=== PATIENT | male | born 1950 | race Caucasian/White ===

== ENCOUNTER 2021-02-11 14:54 | Emergency (ER) | payer OTHER, MEDICARE ==
[~2021-02-11] VITALS: Ht 180.3 cm; Wt 81.0 kg
[2021-02-11] MEDS ORDERED: adenosine 3mg/ml 2ml vial IV ONE ×2 (15:00)
[2021-02-11 15:20] LABS: BASOPHILS % (AUTO) 0.5 % (0-1); EOSINOPHILS # (AUTO) 0.1 X10'3 (0-0.9); EOSINOPHILS % (AUTO) 1.7 % (0-6); HEMATOCRIT 47.6 % (42.0-52.0); HEMOGLOBIN 15.6 g/dl (14.0-17.9); LYMPHOCYTES # (AUTO) 1.1 X10'3 (1.1-4.8); LYMPHOCYTES % (AUTO) 12.5 % (21-51); MEAN CORPUSCULAR HEMOGLOBIN 30.3 PG (27.0-31.0); MEAN CORPUSCULAR HGB CONC 32.8 g/dL (33.0-36.5); MEAN CORPUSCULAR VOLUME 92.2 FL (78-98); MONOCYTES # (AUTO) 0.7 X10'3 (0-0.9); MONOCYTES % (AUTO) 8.6 % (2-12); NEUTROPHILS # (AUTO) 6.5 X10'3 (1.8-7.7); NEUTROPHILS % (AUTO) 76.7 % (42-75); PLATELET COUNT 216 X10'3 (140-440); RED BLOOD COUNT 5.17 X10'6 (4.70-6.10); RED CELL DISTRIBUTION WIDTH 14.4 % (11.5-14.5); WHITE BLOOD COUNT 8.5 X10'3 (4.5-11.0)
[2021-02-11 15:38] LABS: ALANINE AMINOTRANSFERASE 31 U/L (12-78); ALBUMIN 2.3 G/DL (3.4-5.0); ALBUMIN/GLOBULIN RATIO 0.5 (1.1-1.5); ALKALINE PHOSPHATASE 88 IU/L (46-116); ANION GAP 6 (8-16); ASPARTATE AMINO TRANSFERASE 24 U/L (10-37); BILIRUBIN,TOTAL 1.1 MG/DL (0.1-1.0); BLOOD UREA NITROGEN 19 MG/DL (7-18); BUN/CREATININE RATIO 14.2 (5.4-32.0); CALCIUM 9.3 MG/DL (8.5-10.1); CHLORIDE 104 MMOL/L (99-107); CREATININE 1.34 MG/DL (0.60-1.10); GLUCOSE 107 MG/DL (70-104); POTASSIUM 4.1 MMOL/L (3.5-5.1); SODIUM 136 MMOL/L (135-145); TOTAL CARBON DIOXIDE 25.8 MMOL/L (24-32); TOTAL PROTEIN 7.3 G/DL (6.4-8.2); eGFR 52 ML/MIN
[2021-02-11] MEDS ORDERED: normal saline 1000ML IV soln IVB ONE ×2 (16:00)
[2021-02-11] MEDS: metoprolol tartrate 50mg tablet PO ONE ×2 (16:39→16:40)
[2021-02-11 18:09] VITALS: BP 109/76
== END 2021-02-11 21:32 | disposition home or self-care (01) ==
LOC: ER 14:55
DX: I48.0 Paroxysmal atrial fibrillation (principal); I25.10 Atherosclerotic heart disease of native coronary artery without angina pectoris; E78.00 Pure hypercholesterolemia, unspecified; Z95.0 Presence of cardiac pacemaker; Z88.8 Allergy status to other drugs, medicaments and biological substances
CPT/HCPCS: 36415; 71045; 80053; 83735; 83880; 84484; 85025; 93005; 96360; 96361; 99285; J7030

== ENCOUNTER 2021-06-14 08:32 | Outpatient (CLI) | payer OTHER | END 2021-06-14 23:59 | disposition home or self-care (01) | LOC: CARD DIAG 08:32 | PROVIDERS: ATTEND Chiropractor | DX: I08.3 Combined rheumatic disorders of mitral, aortic and tricuspid valves (principal); I25.10 Atherosclerotic heart disease of native coronary artery without angina pectoris; I48.91 Unspecified atrial fibrillation | CPT/HCPCS: 93306 ==

== ENCOUNTER 2023-01-18 11:52 | Day surgery (SDC) | payer OTHER ==
[2023-01-18] VITALS (8 sets, daily range): BP systolic 110–138; BP diastolic 64–95; PULSE 68–89; RESP 12–23; TEMP 98; O2SAT 93–100
[~2023-01-18] VITALS: Ht 182.9 cm; Wt 92.8 kg
[2023-01-18] MEDS ORDERED: LORazepam 0.5 MG tablet PO PRN (12:25)
[2023-01-18] MEDS ORDERED: normal saline 1,000 ML IV SCH (12:25)
[2023-01-18] MEDS ORDERED: diphenhydrAMINE 25mg capsule PO PRN (12:25)
[2023-01-18] MEDS ORDERED: HYDR12.55 PO (12:46)
[2023-01-18] MEDS ORDERED: NITR0.4T51 SL (12:47)
[2023-01-18] MEDS ORDERED: VITAMIN B12 (12:48)
[2023-01-18] MEDS ORDERED: ROSU20TA73 (12:49)
[2023-01-18 12:51] LABS: ALBUMIN 3.9 G/DL (3.4-5.0); ANION GAP 10 (8-16); BLOOD UREA NITROGEN 20 MG/DL (7-18); CALCIUM 9.2 MG/DL (8.5-10.1); CHLORIDE 105 MMOL/L (99-107); CREATININE 1.11 MG/DL (0.60-1.10); GLUCOSE 106 MG/DL (70-104); POTASSIUM 4.3 MMOL/L (3.5-5.1); SODIUM 139 MMOL/L (135-145); TOTAL CARBON DIOXIDE 24.3 MMOL/L (24-32); eGFR 65 ML/MIN
[2023-01-18] MEDS ORDERED: ALPR-384 PO (12:51)
[2023-01-18 12:52] LABS: BASOPHILS % (AUTO) 0.5 % (0-1); EOSINOPHILS # (AUTO) 0.1 X10'3 (0-0.9); EOSINOPHILS % (AUTO) 1.6 % (0-6); HEMATOCRIT 45.1 % (42.0-52.0); HEMOGLOBIN 14.9 g/dl (14.0-17.9); LYMPHOCYTES # (AUTO) 1.1 X10'3 (1.1-4.8); LYMPHOCYTES % (AUTO) 20.9 % (21-51); MEAN CORPUSCULAR VOLUME 87.8 FL (78-98); MONOCYTES # (AUTO) 0.6 X10'3 (0-0.9); MONOCYTES % (AUTO) 11.2 % (2-12); NEUTROPHILS # (AUTO) 3.6 X10'3 (1.8-7.7); NEUTROPHILS % (AUTO) 65.8 % (42-75); PLATELET COUNT 172 X10'3 (140-440); RED BLOOD COUNT 5.13 X10'6 (4.70-6.10); RED CELL DISTRIBUTION WIDTH 14.7 % (11.5-14.5); WHITE BLOOD COUNT 5.4 X10'3 (4.5-11.0)
[2023-01-18] MEDS ORDERED: CHOL20002 PO (12:52)
[2023-01-18 12:53] LABS: PROTHROMBIN TIME 10.7 SECONDS (9.0-12.0)
[2023-01-18] MEDS ORDERED: OMEP40CA21 PO (12:53)
[2023-01-18] MEDS ORDERED: OMEG100037 PO (12:53)
[2023-01-18] MEDS ORDERED: ASPI-1265 PO (12:54)
[2023-01-18] MEDS ORDERED: fentaNYL/PF 50MCG/1 ML 2ML syringe ONE (13:08)
[2023-01-18] MEDS ORDERED: heparin 1,000unit/ml 10ml vial 10 ML ONE ×2 (13:08→14:50)
[2023-01-18] MEDS ORDERED: LIDOcaine 1% (10mg/ml) 2ml vial ONE (13:08)
[2023-01-18] MEDS ORDERED: verapamil 2.5 mg/ml inj IV ONE (13:08)
[2023-01-18] MEDS ORDERED: iohexol 350MG/ML 100ml bottle IV ONE (13:08)
[2023-01-18] MEDS ORDERED: midazolam 1 mg/ML 2ml injection ONE (13:08)
[2023-01-18] MEDS ORDERED: nitroGLYCERIN 500mcg/5mL D5W 5 ML IV ONE (13:10)
[2023-01-18] MEDS ORDERED: LIDOcaine 1% 30ml preserv. free vial ONE (14:13)
[2023-01-18] MEDS ORDERED: iohexol 350 MG/ML 50ML vial IV ONE ×3 (14:33→15:03)
[2023-01-18] MEDS ORDERED: clopidogrel 300mg tablet ONE (14:57)
[2023-01-18] MEDS ORDERED: aspirin 325mg tablet ONE (14:57)
== END 2023-01-18 17:35 | disposition home or self-care (01) ==
LOC: SSTAY O 11:52
PROVIDERS: ATTEND Student in an Organized Health Care Education/Training Program
DX: R07.89 Other chest pain (principal); T82.855A Stenosis of coronary artery stent, initial encounter; I25.810 Atherosclerosis of coronary artery bypass graft(s) without angina pectoris; I25.2 Old myocardial infarction; I10 Essential (primary) hypertension; I25.10 Atherosclerotic heart disease of native coronary artery without angina pectoris; I48.91 Unspecified atrial fibrillation; E78.5 Hyperlipidemia, unspecified; Z79.899 Other long term (current) drug therapy; Z79.82 Long term (current) use of aspirin; Z88.5 Allergy status to narcotic agent; Y84.0 Cardiac catheterization as the cause of abnormal reaction of the patient, or of later complication, without mention of misadventure at the time of the procedure; Y92.89 Other specified places as the place of occurrence of the external cause
CPT/HCPCS: 36415; 80048; 85025; 85610; 92920; 93005; 93459; 99152; 99153; C1725; C1751; C1760; C1769; C1894; J1644; J2250; J3010; J3490; J7030; Q0163; Q9967; A6258

== ENCOUNTER 2023-07-29 11:12 | Outpatient (CLI) | payer OTHER ==
[~2023-07-29 11:12] MED LIST: ALPR-384 PO; ASPI-1265 PO; CHOL20002 PO; HYDR12.55 PO; NITR0.4T51 SL; OMEG100037 PO; OMEP40CA21 PO; ROSU20TA73; VITAMIN B12
== END 2023-07-29 23:59 | disposition home or self-care (01) ==
LOC: RAD 11:12
PROVIDERS: ATTEND Chiropractor
DX: I08.8 Other rheumatic multiple valve diseases (principal); I25.10 Atherosclerotic heart disease of native coronary artery without angina pectoris; I21.3 ST elevation (STEMI) myocardial infarction of unspecified site; I48.91 Unspecified atrial fibrillation; I45.2 Bifascicular block
CPT/HCPCS: 93005; 93306

== ENCOUNTER 2024-03-02 17:13 | Inpatient (IN) | payer OTHER, MEDICARE ==
[~2024-03-02] VITALS: Ht 182.9 cm; Wt 97.1 kg
[~2024-03-02 17:13] MED LIST changes: -ROSU20TA73; +ROSU20TA98
[2024-03-02 17:46] LABS: BASOPHILS % (AUTO) 0.6 % (0-1); EOSINOPHILS # (AUTO) 0.2 X10'3 (0-0.9); EOSINOPHILS % (AUTO) 2.6 % (0-6); HEMATOCRIT 44.2 % (42.0-52.0); HEMOGLOBIN 14.9 g/dl (14.0-17.9); LYMPHOCYTES # (AUTO) 1.1 X10'3 (1.1-4.8); LYMPHOCYTES % (AUTO) 15.9 % (21-51); MEAN CORPUSCULAR HGB CONC 33.6 g/dL (33.0-36.5); MEAN CORPUSCULAR VOLUME 86.2 FL (78-98); MEAN PLATELET VOLUME 8.1 FL (7.4-10.4); MONOCYTES # (AUTO) 0.7 X10'3 (0-0.9); NEUTROPHILS # (AUTO) 5.1 X10'3 (1.8-7.7); NEUTROPHILS % (AUTO) 70.9 % (42-75); PLATELET COUNT 206 X10'3 (140-440); RED BLOOD COUNT 5.13 X10'6 (4.70-6.10); RED CELL DISTRIBUTION WIDTH 14.8 % (11.5-14.5); WHITE BLOOD COUNT 7.2 X10'3 (4.5-11.0)
[2024-03-02] MEDS: diltiazem 5mg/ml 5ml inj. IV ONE (17:48)
[2024-03-02] MEDS ORDERED: diltiazem-NS 100mg/100ml 100 ML IV SCH (17:50)
[2024-03-02 17:55] LABS: ALANINE AMINOTRANSFERASE 57 U/L (12-78); ALBUMIN 3.8 G/DL (3.4-5.0); ALBUMIN/GLOBULIN RATIO 1.2 (1.1-1.5); ALKALINE PHOSPHATASE 78 IU/L (46-116); ANION GAP 5 (8-16); ASPARTATE AMINO TRANSFERASE 45 U/L (10-37); BILIRUBIN,TOTAL 0.7 MG/DL (0.1-1.0); BLOOD UREA NITROGEN 25 MG/DL (7-18); BUN/CREATININE RATIO 18.1 (10.0-20.0); CALCIUM 9.2 MG/DL (8.5-10.1); CHLORIDE 105 MMOL/L (99-107); CREATININE 1.38 MG/DL (0.60-1.10); GLUCOSE 112 MG/DL (70-104); POTASSIUM 3.8 MMOL/L (3.5-5.1); PRO BRAIN NATRIURETIC PEPTIDE 1106 PG/ML (0-450); SODIUM 139 MMOL/L (135-145); TOTAL PROTEIN 7.1 G/DL (6.4-8.2); eCRCL 51 ML/MIN; eGFR 50 ML/MIN
[2024-03-02] MEDS: aspirin 81mg tab.chew PO ONE (18:10)
[2024-03-02] MEDS: diltiazem-NS 100mg/100ml 100 ML IV SCH (18:18)
[2024-03-02] MEDS ORDERED: magnesium sulf-water 4G/100mL 100 ML IV PRN (18:35)
[2024-03-02] MEDS ORDERED: acetaminophen 325mg tablet PO PRN (18:35)
[2024-03-02] MEDS ORDERED: potassium Cl 40MEQ/1/2NS 520ml 520 ML IV PRN (18:35)
[2024-03-02] MEDS: PERFLUTREN PROTEIN-A MICROSPHR (Optison) 0.22 MG/ML 3ML VIAL IV ONE (18:35)
[2024-03-02] MEDS ORDERED: mag hydrox/Alum hydrox/simeth 30ml oral suspension PO PRN (18:35)
[2024-03-02] MEDS ORDERED: magnesium Cl slow-release 64mg tablet PO PRN (18:35)
[2024-03-02] MEDS ORDERED: magnesium hydroxide 30ml (MOM) UD suspension PO PRN (18:35)
[2024-03-02] MEDS ORDERED: ondansetron/PF 4mg/2ml inj IV PRN (18:35)
[2024-03-02] MEDS ORDERED: potassium Cl 20 mEq SR tablet PO PRN ×2 (18:35)
[2024-03-02] MEDS ORDERED: magnesium sulf-water 2g/50mL 50 ML IV PRN (18:35)
[2024-03-02] MEDS ORDERED: MELA5TAB50 PO (18:59)
[2024-03-02] MEDS ORDERED: AMLO2.5T2 PO (19:02)
[2024-03-02] MEDS ORDERED: IRBE150T51 PO (19:03)
[2024-03-02] MEDS: docusate sod 100mg capsule PO SCH (19:21)
[2024-03-02] MEDS: K and/or MAG REPLACEMENT MC SCH (19:23)
[2024-03-02] MEDS: normal saline 1000ML IV soln IVB ONE (19:59)
[2024-03-02] MEDS: apixaban 5mg tablet PO SCH (19:59)
[2024-03-02] MEDS ORDERED: enoxaparin 40mg/0.4ml syringe SQ SCH (20:00)
[2024-03-02 22:00] VITALS: BP 113/83; PULSE 94; RESP 20; TEMP 97.3; O2SAT 97
[2024-03-02 23:00] VITALS: BP 136/99; PULSE 71; RESP 16
[2024-03-03] VITALS (19 sets, daily range): BP systolic 90–133; BP diastolic 58–88; PULSE 72–136; RESP 15–22; TEMP 97.2–98.7; O2SAT 95–98
[2024-03-03] MEDS: diltiazem-NS 100mg/100ml 100 ML IV SCH ×2 (02:37→03:39)
[2024-03-03] MEDS ORDERED: ALPRAZolam 0.25mg tablet PO SCH (08:00)
[2024-03-03] MEDS: ALPRAZolam 0.25mg tablet PO SCH (08:00)
[2024-03-03] MEDS: losartan 25mg tablet PO SCH (08:00)
[2024-03-03] MEDS: metoprolol succinate 25mg (24-HOUR) SR. Tablet PO SCH (08:00)
[2024-03-03 08:14] LABS: BASOPHILS % (AUTO) 0.5 % (0-1); EOSINOPHILS # (AUTO) 0.2 X10'3 (0-0.9); EOSINOPHILS % (AUTO) 3.2 % (0-6); HEMATOCRIT 41.1 % (42.0-52.0); HEMOGLOBIN 13.8 g/dl (14.0-17.9); LYMPHOCYTES # (AUTO) 1.1 X10'3 (1.1-4.8); LYMPHOCYTES % (AUTO) 17.1 % (21-51); MEAN CORPUSCULAR HEMOGLOBIN 28.9 PG (27.0-31.0); MEAN CORPUSCULAR HGB CONC 33.5 g/dL (33.0-36.5); MEAN CORPUSCULAR VOLUME 86.2 FL (78-98); MEAN PLATELET VOLUME 8.7 FL (7.4-10.4); MONOCYTES # (AUTO) 0.7 X10'3 (0-0.9); NEUTROPHILS # (AUTO) 4.5 X10'3 (1.8-7.7); NEUTROPHILS % (AUTO) 68.2 % (42-75); PLATELET COUNT 186 X10'3 (140-440); RED BLOOD COUNT 4.76 X10'6 (4.70-6.10); RED CELL DISTRIBUTION WIDTH 14.3 % (11.5-14.5); WHITE BLOOD COUNT 6.6 X10'3 (4.5-11.0)
[2024-03-03] MEDS: cholecalciferol (vitamin D3) 1,000 unit (25mcg) tablet PO SCH (08:20)
[2024-03-03] MEDS: pantoprazole 40mg Tablet.DR PO SCH (08:20)
[2024-03-03] MEDS: OMEGA-3/DHA/EPA/FISH OIL 1 EACH CAPSULE.DR PO SCH (08:21)
[2024-03-03] MEDS: amLODIPine 5mg tablet PO SCH (08:22)
[2024-03-03] MEDS: aspirin 81mg tab.chew PO SCH (08:24)
[2024-03-03] MEDS: HYDROchlorothiazide 12.5mg capsule PO SCH (08:26)
[2024-03-03 08:28] LABS: ALANINE AMINOTRANSFERASE 47 U/L (12-78); ALBUMIN 3.1 G/DL (3.4-5.0); ALKALINE PHOSPHATASE 61 IU/L (46-116); ANION GAP 7 (8-16); ASPARTATE AMINO TRANSFERASE 42 U/L (10-37); BILIRUBIN,TOTAL 0.7 MG/DL (0.1-1.0); BLOOD UREA NITROGEN 23 MG/DL (7-18); BUN/CREATININE RATIO 18.7 (10.0-20.0); CALCIUM 8.5 MG/DL (8.5-10.1); CHLORIDE 105 MMOL/L (99-107); CHOL/HDL RATIO 2.8 (0.00-4.99); CHOLESTEROL 107 MG/DL (0-200); CREATININE 1.23 MG/DL (0.60-1.10); GLUCOSE 96 MG/DL (70-104); HDL CHOLESTEROL 38 MG/DL (35-60); LDL CHOLESTEROL 57 MG/DL (50-100); MAGNESIUM 1.9 MG/DL (1.5-2.4); POTASSIUM 3.7 MMOL/L (3.5-5.1); SODIUM 137 MMOL/L (135-145); THYROID STIMULATING HORMONE 3.87 ulU/ml (0.34-4.50); TOTAL CARBON DIOXIDE 25.2 MMOL/L (24-32); TOTAL PROTEIN 6.3 G/DL (6.4-8.2); TRIGLYCERIDES 107 MG/DL (20-135); eCRCL 57 ML/MIN; eGFR 57 ML/MIN
[2024-03-03] MEDS ORDERED: aminophylline 250mg/10ml inj. IV PRN (18:50)
[2024-03-03] MEDS ORDERED: regadenoson 0.4mg/5ml syringe IV PRN (18:50)
[2024-03-03] MEDS ORDERED: nitroGLYCERIN 0.4mg SUBLingual tab SL PRN (18:50)
[2024-03-03] MEDS ORDERED: metoprolol tartrate 1mg/ml inj IV PRN (18:50)
[2024-03-03] MEDS: carvedilol 6.25mg tablet PO SCH (19:42)
[2024-03-03] MEDS: metoprolol tartrate 1mg/ml inj IV ONE (20:22)
[2024-03-03] MEDS: Melatonin 3mg tablet PO SCH (22:46)
[2024-03-04] VITALS (18 sets, daily range): BP systolic 84–117; BP diastolic 52–84; PULSE 50–120; RESP 14–25; TEMP 96.9–98.2; O2SAT 95–98
[2024-03-04 07:42] LABS: BASOPHILS % (AUTO) 0.5 % (0-1); EOSINOPHILS # (AUTO) 0.2 X10'3 (0-0.9); HEMATOCRIT 43.9 % (42.0-52.0); HEMOGLOBIN 14.7 g/dl (14.0-17.9); MEAN CORPUSCULAR HGB CONC 33.4 g/dL (33.0-36.5); PLATELET COUNT 191 X10'3 (140-440)
[2024-03-04 07:43] LABS: ALANINE AMINOTRANSFERASE 47 U/L (12-78); ALBUMIN 3.4 G/DL (3.4-5.0); ALKALINE PHOSPHATASE 61 IU/L (46-116); ANION GAP 5 (8-16); ASPARTATE AMINO TRANSFERASE 43 U/L (10-37); BILIRUBIN,TOTAL 0.7 MG/DL (0.1-1.0); BLOOD UREA NITROGEN 19 MG/DL (7-18); BUN/CREATININE RATIO 14.7 (10.0-20.0); CALCIUM 8.9 MG/DL (8.5-10.1); CHLORIDE 103 MMOL/L (99-107); CREATININE 1.29 MG/DL (0.60-1.10); GLUCOSE 100 MG/DL (70-104); POTASSIUM 3.9 MMOL/L (3.5-5.1); SODIUM 136 MMOL/L (135-145); TOTAL CARBON DIOXIDE 28.1 MMOL/L (24-32); TOTAL PROTEIN 6.7 G/DL (6.4-8.2); eCRCL 54 ML/MIN; eGFR 54 ML/MIN
[2024-03-04 07:46] LABS: EOSINOPHILS % (AUTO) 3.3 % (0-6); LYMPHOCYTES # (AUTO) 1.1 X10'3 (1.1-4.8); LYMPHOCYTES % (AUTO) 17.1 % (21-51); MEAN CORPUSCULAR HEMOGLOBIN 28.7 PG (27.0-31.0); MEAN CORPUSCULAR VOLUME 85.8 FL (78-98); MEAN PLATELET VOLUME 8.5 FL (7.4-10.4); MONOCYTES # (AUTO) 0.7 X10'3 (0-0.9); MONOCYTES % (AUTO) 10.4 % (2-12); NEUTROPHILS # (AUTO) 4.4 X10'3 (1.8-7.7); NEUTROPHILS % (AUTO) 68.7 % (42-75); RED BLOOD COUNT 5.11 X10'6 (4.70-6.10); RED CELL DISTRIBUTION WIDTH 14.5 % (11.5-14.5); WHITE BLOOD COUNT 6.4 X10'3 (4.5-11.0)
[2024-03-04] MEDS: metoprolol tartrate 1mg/ml inj IV ONE (09:55)
[2024-03-04] MEDS: carvedilol 6.25mg tablet ONE (09:59)
[2024-03-04] MEDS: regadenoson 0.4mg/5ml syringe IV PRN (11:05)
[2024-03-04] MEDS: amiodarone 150mg/dext, iso-os 100 ML IV ONE (13:53)
[2024-03-04] MEDS: carVEDilol 12.5mg tablet PO ONE ×2 (19:45→23:20)
[2024-03-04] MEDS ORDERED: carvedilol 6.25mg tablet PO SCH ×2 (19:45→20:00)
[2024-03-04] MEDS: amiodarone 200mg tablet PO SCH (20:00)
[2024-03-04] MEDS: carvedilol 6.25mg tablet PO ONE (20:08)
[2024-03-04] MEDS: amiodarone 200mg tablet PO ONE ×2 (20:08→23:20)
[2024-03-05 02:00] VITALS: BP 94/71; PULSE 73; RESP 16; TEMP 97.7; O2SAT 97
[2024-03-05 06:00] VITALS: BP 105/76; PULSE 101; RESP 18; TEMP 97.5; O2SAT 97
[2024-03-05 06:50] LABS: BASOPHILS % (AUTO) 0.5 % (0-1); EOSINOPHILS # (AUTO) 0.2 X10'3 (0-0.9); EOSINOPHILS % (AUTO) 3.2 % (0-6); HEMATOCRIT 43.4 % (42.0-52.0); HEMOGLOBIN 14.6 g/dl (14.0-17.9); LYMPHOCYTES # (AUTO) 1.3 X10'3 (1.1-4.8); LYMPHOCYTES % (AUTO) 18.3 % (21-51); MEAN CORPUSCULAR HGB CONC 33.6 g/dL (33.0-36.5); MEAN CORPUSCULAR VOLUME 86.5 FL (78-98); MEAN PLATELET VOLUME 8.5 FL (7.4-10.4); MONOCYTES # (AUTO) 0.8 X10'3 (0-0.9); MONOCYTES % (AUTO) 11.1 % (2-12); NEUTROPHILS # (AUTO) 4.7 X10'3 (1.8-7.7); NEUTROPHILS % (AUTO) 66.9 % (42-75); PLATELET COUNT 177 X10'3 (140-440); RED BLOOD COUNT 5.02 X10'6 (4.70-6.10); RED CELL DISTRIBUTION WIDTH 14.3 % (11.5-14.5); WHITE BLOOD COUNT 7.1 X10'3 (4.5-11.0)
[2024-03-05 07:18] LABS: ALANINE AMINOTRANSFERASE 44 U/L (12-78); ALBUMIN 3.1 G/DL (3.4-5.0); ALKALINE PHOSPHATASE 59 IU/L (46-116); ANION GAP 9 (8-16); ASPARTATE AMINO TRANSFERASE 36 U/L (10-37); BILIRUBIN,TOTAL 0.6 MG/DL (0.1-1.0); BLOOD UREA NITROGEN 19 MG/DL (7-18); BUN/CREATININE RATIO 17.3 (10.0-20.0); CALCIUM 8.9 MG/DL (8.5-10.1); CHLORIDE 104 MMOL/L (99-107); GLUCOSE 113 MG/DL (70-104); MAGNESIUM 2.2 MG/DL (1.5-2.4); SODIUM 136 MMOL/L (135-145); TOTAL CARBON DIOXIDE 22.6 MMOL/L (24-32); TOTAL PROTEIN 6.2 G/DL (6.4-8.2); eCRCL 64 ML/MIN; eGFR 65 ML/MIN
[2024-03-05 08:00] VITALS: RESP 18; O2SAT 97
[2024-03-05] MEDS: carVEDilol 12.5mg tablet PO SCH (09:08)
[2024-03-05] MEDS ORDERED: AMI200T PO (12:58)
[2024-03-05] MEDS ORDERED: APIX5TAB3 PO (12:58)
[2024-03-05] MEDS ORDERED: CARV12.545 PO (12:58)
[2024-03-05 13:00] VITALS: BP 107/67; PULSE 88; RESP 17; TEMP 97.8; O2SAT 98
[2024-03-05] MEDS ORDERED: amiodarone 200mg tablet PO SCH (20:00)
== END 2024-03-05 14:30 | disposition home or self-care (01) | DRG 282 ==
LOC: ER 17:13 → ED HOLD 18:09 → EDBEDREQ 20:46 → PCU 3S 21:34
PROVIDERS: ADMIT Family Medicine; ATTEND Family Medicine
PROC: 4A02XM4 Measurement of Cardiac Total Activity, External Approach (ICD-10-PCS; principal; 2024-03-03)
PROC: 3E033HZ Introduction of Radioactive Substance into Peripheral Vein, Percutaneous Approach (ICD-10-PCS; 2024-03-03)
DX: I48.91 Unspecified atrial fibrillation (principal); I21.A1 Myocardial infarction type 2; E78.00 Pure hypercholesterolemia, unspecified; I10 Essential (primary) hypertension; E78.5 Hyperlipidemia, unspecified; I25.10 Atherosclerotic heart disease of native coronary artery without angina pectoris; Z79.82 Long term (current) use of aspirin; Z79.899 Other long term (current) drug therapy; Z95.1 Presence of aortocoronary bypass graft; Z88.5 Allergy status to narcotic agent; Z95.5 Presence of coronary angioplasty implant and graft
CPT/HCPCS: 36415; 71045; 78452; 80053; 80061; 83735; 83880; 84443; 84484; 85025; 87081; 93005; 93017; 93306; 99291; A9500; G0378; J0282; J2785; J3490; J7030

== ENCOUNTER 2024-03-24 06:53 | Day surgery (SDC) | payer OTHER, MEDICARE ==
[2024-03-24] VITALS (9 sets, daily range): BP systolic 105–120; BP diastolic 73–89; PULSE 80–86; RESP 13–19; O2SAT 94–100
[~2024-03-24] VITALS: Ht 182.9 cm; Wt 95.5 kg
[~2024-03-24 06:53] MED LIST changes: +AMI200T PO; +APIX5TAB3 PO; -ASPI-1265 PO; +MELA5TAB50 PO; +METOPROLOL PO
[2024-03-24] MEDS ORDERED: simethicone 40mg/0.6ml oral drops 30ml ONE (08:05)
[2024-03-24] MEDS ORDERED: LIDOcaine 2% Viscous 15ml cup ONE (08:07)
[2024-03-24] MEDS ORDERED: MIDAZolam 1 MG/ML 5ML VIAL ONE (08:13)
[2024-03-24] MEDS ORDERED: fentaNYL/PF 50MCG/1 ML 2ML syringe ONE (08:13)
== END 2024-03-24 09:15 | disposition home or self-care (01) ==
LOC: GI LAB 06:53
PROVIDERS: ATTEND Surgery
DX: K44.9 Diaphragmatic hernia without obstruction or gangrene (principal); K29.50 Unspecified chronic gastritis without bleeding; K20.90 Esophagitis, unspecified without bleeding; I10 Essential (primary) hypertension; I25.10 Atherosclerotic heart disease of native coronary artery without angina pectoris; E78.5 Hyperlipidemia, unspecified; I48.91 Unspecified atrial fibrillation; Z87.891 Personal history of nicotine dependence; Z79.01 Long term (current) use of anticoagulants; Z79.899 Other long term (current) drug therapy; Z95.1 Presence of aortocoronary bypass graft; Z98.890 Other specified postprocedural states; Z83.3 Family history of diabetes mellitus; Z82.49 Family history of ischemic heart disease and other diseases of the circulatory system; Z80.9 Family history of malignant neoplasm, unspecified
CPT/HCPCS: 43239; 99152; J2250; J3010; J7030; Z7512; A4620

== ENCOUNTER 2024-04-07 10:55 | Day surgery (SDC) | payer OTHER, MEDICARE ==
[2024-04-06 10:11] LABS: BASOPHILS % (AUTO) 0.7 % (0-1); EOSINOPHILS # (AUTO) 0.1 X10'3 (0-0.9); EOSINOPHILS % (AUTO) 1.8 % (0-6); HEMATOCRIT 44.6 % (42.0-52.0); HEMOGLOBIN 14.8 g/dl (14.0-17.9); LYMPHOCYTES # (AUTO) 0.9 X10'3 (1.1-4.8); LYMPHOCYTES % (AUTO) 13.8 % (21-51); MEAN CORPUSCULAR HEMOGLOBIN 28.1 PG (27.0-31.0); MEAN CORPUSCULAR HGB CONC 33.1 g/dL (33.0-36.5); MEAN PLATELET VOLUME 8.3 FL (7.4-10.4); MONOCYTES # (AUTO) 0.6 X10'3 (0-0.9); MONOCYTES % (AUTO) 9.7 % (2-12); NEUTROPHILS # (AUTO) 4.7 X10'3 (1.8-7.7); PLATELET COUNT 242 X10'3 (140-440); RED BLOOD COUNT 5.24 X10'6 (4.70-6.10); RED CELL DISTRIBUTION WIDTH 14.6 % (11.5-14.5); WHITE BLOOD COUNT 6.4 X10'3 (4.5-11.0)
[2024-04-06 10:22] LABS: APTT 30 SECONDS (22-32); INR 1.1 INR; PROTHROMBIN TIME 11.7 SECONDS (9.0-12.0)
[2024-04-06 10:39] LABS: ALBUMIN 3.7 G/DL (3.4-5.0); ANION GAP 10 (8-16); BLOOD UREA NITROGEN 22 MG/DL (7-18); BUN/CREATININE RATIO 15.1 (10.0-20.0); CALCIUM 8.8 MG/DL (8.5-10.1); CHLORIDE 105 MMOL/L (99-107); CHOL/HDL RATIO 2.7 (0.00-4.99); CHOLESTEROL 117 MG/DL (0-200); CREATININE 1.46 MG/DL (0.60-1.10); GLUCOSE 106 MG/DL (70-104); HDL CHOLESTEROL 43 MG/DL (35-60); LDL CHOLESTEROL 63 MG/DL (50-100); POTASSIUM 3.9 MMOL/L (3.5-5.1); SODIUM 143 MMOL/L (135-145); TOTAL CARBON DIOXIDE 28.4 MMOL/L (24-32); TRIGLYCERIDES 69 MG/DL (20-135); eGFR 47 ML/MIN
[~2024-04-07] VITALS: Ht 182.9 cm; Wt 94.0 kg
[2024-04-07] VITALS (10 sets, daily range): BP systolic 93–127; BP diastolic 55–88; PULSE 63–105; RESP 13–20; TEMP 97.5; O2SAT 92–96
[2024-04-07] MEDS ORDERED: AMI200T PO ×2 (11:19→11:20)
[2024-04-07] MEDS ORDERED: APIX5TAB3 PO (11:21)
[2024-04-07] MEDS: fentaNYL/PF 50MCG/1 ML 2ML syringe IV ONE (13:02)
[2024-04-07] MEDS: MIDAZolam 1mg/ml 10ml vial IV ONE (13:02)
[2024-04-07] MEDS: normal saline 1000ml 1,000 ML IV SCH (13:02)
== END 2024-04-07 13:55 | disposition home or self-care (01) ==
LOC: SSTAY O 10:55
PROVIDERS: ATTEND Internal Medicine Interventional Cardiology
DX: I48.91 Unspecified atrial fibrillation (principal); I49.1 Atrial premature depolarization; I25.10 Atherosclerotic heart disease of native coronary artery without angina pectoris; I25.2 Old myocardial infarction; I08.3 Combined rheumatic disorders of mitral, aortic and tricuspid valves; Z79.899 Other long term (current) drug therapy
CPT/HCPCS: 36415; 80048; 80061; 85025; 85610; 85730; 92960; 93005; J2250; J3010; J7030

== ENCOUNTER 2024-06-19 11:56 | Outpatient (CLI) | payer OTHER, MEDICARE ==
[~2024-06-19 11:56] MED LIST changes: -MELA5TAB50 PO; -NITR0.4T51 SL; +barium sulfate 340gm for oral suspension 1 BOTTLE SUSP.RECON PO ONE
== END 2024-06-19 23:59 | disposition home or self-care (01) ==
LOC: RAD 11:56
PROVIDERS: ATTEND Surgery
DX: K21.9 Gastro-esophageal reflux disease without esophagitis (principal)
CPT/HCPCS: 74220

== ENCOUNTER 2024-10-22 07:08 | Day surgery (SDC) | payer OTHER, MEDICARE ==
[2024-10-19 14:21] LABS: BASOPHILS % (AUTO) 0.6 % (0-1); EOSINOPHILS # (AUTO) 0.2 X10'3 (0-0.9); EOSINOPHILS % (AUTO) 2.6 % (0-6); LYMPHOCYTES # (AUTO) 1.1 X10'3 (1.1-4.8); LYMPHOCYTES % (AUTO) 14.3 % (21-51); MEAN CORPUSCULAR HEMOGLOBIN 27.4 PG (27.0-31.0); MEAN CORPUSCULAR HGB CONC 32.5 g/dL (33.0-36.5); MEAN CORPUSCULAR VOLUME 84.4 FL (78-98); MEAN PLATELET VOLUME 8.6 FL (7.4-10.4); MONOCYTES # (AUTO) 0.8 X10'3 (0-0.9); MONOCYTES % (AUTO) 9.6 % (2-12); NEUTROPHILS # (AUTO) 5.7 X10'3 (1.8-7.7); NEUTROPHILS % (AUTO) 72.9 % (42-75); PRE OP HEMATOCRIT 45.4 % (42.0-52.0); PRE OP HEMOGLOBIN 14.8 g/dL (14.0-17.9); PRE OP PLATELET COUNT 210 X10'3 (140-440); PRE OP WHITE BLOOD COUNT 7.8 10'3 (4.8-10.8); RED BLOOD COUNT 5.38 X10'6 (4.70-6.10)
[2024-10-19 14:30] LABS: ALBUMIN 3.8 G/DL (3.4-5.0); ALBUMIN/GLOBULIN RATIO 1.1 (1.1-1.5); ALKALINE PHOSPHATASE 67 IU/L (46-116); BLOOD UREA NITROGEN 25 MG/DL (7-18); BUN/CREATININE RATIO 17.9 (10.0-20.0); CALCIUM 9.2 MG/DL (8.5-10.1); CHLORIDE 103 MMOL/L (99-107); PRE OP ALT 23 U/L (30-65); PRE OP ANION GAP 7 (8-16); PRE OP AST 22 U/L (10-37); PRE OP BILIRUB, TOTAL 0.8 MG/DL (0.0-1.0); PRE OP GLUCOSE 97 MG/DL (70-104); PRE OP POTASSIUM 4.4 MMOL/L (3.4-5.1); PRE OP SODIUM 138 MMOL/L (135-145); TOTAL CARBON DIOXIDE 28.1 MMOL/L (24-32); TOTAL PROTEIN 7.4 G/DL (6.4-8.2); eGFR 49 ML/MIN
[2024-10-21] MEDS: DOCUMENT DATE & TIME OF BETA-BLOCKER PO ONE (19:00)
[~2024-10-22] VITALS: Ht 182.9 cm; Wt 95.3 kg
[2024-10-22] VITALS (15 sets, daily range): BP systolic 107–133; BP diastolic 71–96; PULSE 57–69; RESP 8–18; TEMP 97; O2SAT 95–100
[2024-10-22] MEDS: ceFAZolin 2gm/dext,iso 50mL 50 ML IV ONE (05:30)
[~2024-10-22 07:08] MED LIST changes: -ALPR-384 PO; -CHOL20002 PO; +LOP12.5T PO; -METOPROLOL PO; -OMEG100037 PO; -ROSU20TA98; +ROSU20TA98 PO; -VITAMIN B12; -barium sulfate 340gm for oral suspension 1 BOTTLE SUSP.RECON PO ONE
[2024-10-22] MEDS ORDERED: LIDOcaine 1% 30ml preserv. free vial ONE (07:51)
[2024-10-22] MEDS ORDERED: BUPIVAcaine 2.5mg/ml inj 50ml vial (contains preservative) ONE (07:51)
[2024-10-22] MEDS: ringers solution, lacted 1,000 ML IV SCH (08:07)
[2024-10-22] MEDS: famotidine 20mg tablet PO ONE (08:07)
[2024-10-22] MEDS ORDERED: acetaminophen 1,000mg/100ml IV 0 ML IV ONE (08:07)
[2024-10-22] MEDS ORDERED: dexamethasone sod phosphate 4mg/ml inj. ONE (08:09)
[2024-10-22] MEDS ORDERED: LIDOcaine 2% (20mg/ml) 5ml vial ONE (08:09)
[2024-10-22] MEDS ORDERED: propofol inj 20 ML IV ONE (08:09)
[2024-10-22] MEDS ORDERED: ondansetron/PF 4mg/2ml inj ONE (08:09)
[2024-10-22] MEDS ORDERED: rocuronium 10mg/ml inj IV ONE ×3 (08:09→10:44)
[2024-10-22] MEDS ORDERED: midazolam 1 mg/ML 2ml injection ONE (08:46)
[2024-10-22] MEDS ORDERED: fentaNYL /PF 50mcg/ml 5ml ampule ONE (08:46)
--- NOTE | 2024-10-22 08:55 | HISTORY AND PHYSICAL ---
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, longstanding despite maximum medical therapy He is here today for elective repair He had an esophagram that showed intact esophageal motility with good swallow reflex, re demonstrating sliding hiatal hernia He is scheduled for robotic assisted, laparoscopic mesh repair of this paraesophageal hernia He may need overnight observation for pain control He denies any change in his past medical history since he was seen in the office (please see previous history and physical exam for all pertinent details) Allergies: Coded Allergies: codeine (Verified Allergy, Unknown, 03/02/24) Home Medications Home Medications Active Reported Lopressor tablet (Metoprolol Tartrate) 25 Mg Tablet 2 Tab PO QPM Hold for SBP below 100mm Hg Hold for Heart Rate below 60. Eliquis (Apixaban) 5 Mg Tablet 1 Tab PO BID PT STOPPED ON 10/19 Cordarone (Amiodarone HCl) 200 Mg Tablet 0.5 Tab PO QPM Prilosec (Omeprazole) 40 Mg Capsule 0.5 Cap PO DAILY Rosuvastatin Calcium 20 Mg Tablet 20 Mg PO QPM Hydrochlorothiazide 12.5 Mg Tablet 1 Tab PO DAILY Family History Family History: FH: diabetes mellitus MOTHER FH: heart attack MOTHER FH: heart disease Sister Brother ROS ROS Reviewed and negative with the exception of reflux Exam Vitals: Vital Signs Date Time Temp Pulse Resp B/P (MAP) Pulse Ox O2 Delivery O2 Flow Rate FiO2 10/22/24 08:31 16 96 Room Air 10/22/24 08:28 97.0 60 107/71 (83) Chest: Lungs clear to auscultation bilaterally Cardiovascular: Regular rate and rhythm without murmurs Abdomen: Soft and nondistended Diagnostic Data Last Recorded Lab Results: 10/19/24 1409 10/19/24 1409 Problems: (1) Paraesophageal hernia Assessment & Plan: The risks, benefits, and alternatives to a robotic assisted, laparoscopic paraesophageal hernia repair with mesh were discussed with the patient. Risks include, but are not limited to, bleeding, infection, injury to intra-abdominal structures, hernia recurrence, dysphagia and the need for additional future surgeries. Patient verbalized understanding and wishes to proceed with surgery. We will do so today as scheduled JENNY VILLEDA MD Oct 22, 2024 08:55
[2024-10-22] MEDS ORDERED: acetaminophen 1,000mg/100ml IV 100 ML IV ONE (09:03)
[2024-10-22] MEDS ORDERED: sevoflurane 250ml liquid IH ONE (09:25)
[2024-10-22] MEDS: BUPIVAcaine/PF 2.5 mg/ml (0.25%) 30ml vial IJ ONE (09:27)
[2024-10-22] MEDS ORDERED: ePHEDrine 50MG/ML INJ. ONE (10:18)
[2024-10-22] MEDS ORDERED: albumin (Human) 5% 250ml 250 ML IV ONE (10:28)
[2024-10-22] MEDS ORDERED: sugammadex 200mg/2ml injection IV ONE (10:37)
[2024-10-22] MEDS ORDERED: fentaNYL/PF 50MCG/1 ML 2ML syringe ONE (10:37)
[2024-10-22] MEDS ORDERED: oxyCODONE/APAP 5-325mg tablet PO PRN (12:25)
--- NOTE | 2024-10-22 12:27 | OPERATIVE REPORT ---
Operative Report Providers to CC CC: RAY VILLEDA MD ~ Date of Procedure: Oct 22, 2024 Pre-Operative Diagnosis: Paraesophageal hernia Post-Operative Diagnosis Type 1 paraesophageal (sliding hiatal) hernia Procedure Performed Robotic assisted, laparoscopic paraesophageal hernia repair with mesh Surgeon: Ray Villeda MD FACS Bird Sitter None Anesthesiologist: Jevon Sams Type of Anesthesia: General Findings: Type 1 paraesophageal (sliding hiatal) hernia Wound class I Complications None Prosthetics\Implants used: Phasix absorbable mesh Estimated Blood Loss: 50 cc Specimen Removed: Hernia sac/GE fat pad excised and discarded Description of Procedure: Patient was brought to the operating room and identified by the nursing staff and the attending physician. Patient was placed supine and general anesthesia was induced. Preoperative antibiotics were given. Timmons catheter was placed. The abdomen was prepped and draped in the standard sterile fashion. At [place], Veress needle technique was used through a stab incision to access and insufflate the abdomen. This was accomplished without incident. An optical, 12 mm trocar was used to gain access to the abdomen in the left upper quadrant under laparoscopic visualization. Additional 8.5 mm robotic trochars were placed under laparoscopic visualization in the left lateral upper abdomen, left epigastrium and right upper quadrant. Patient was placed in steep, reverse Trendelenburg position. The da Rbeezy robotic arm was docked to the patient and instruments guided into the abdomen under laparoscopic visualization. The left lobe of the liver was lifted and the hiatus inspected. Fairly large hiatal defect was noted. No obvious hiatal defect was noted. There was fairly amount of fat at the level of the hiatus. An 18 inch, 0, V-Loc suture was used to sling the left lobe of the liver up to the anterior abdominal wall. With the stomach retracted towards the patient's left upper quadrant, dissection was initiated along the pars flaccida and the lesser sac was entered. The lesser omentum was divided up to the right carmelo. There was not a replaced left hepatic artery. Dissection was carried in to the mediastinum. The mediastinal space was entered. Dissection was then carried posteriorly along the right carmelo, taking care to leave peritoneum overlying the muscles. Once the posterior decussation was encountered, attention was then turned to the short gastric vessels. Stomach was retracted toward the patient's right and the short gastric vessels were placed on tension. The short gastric vessels were divided along the upper portion of the greater curvature, up to the phrenoesophageal ligament which was also then divided. The peritoneal reflection of the left carmelo was opened and dissection carried up until the apex of the crura was reached. Dissection was carried up into the mediastinum, mobilizing the esophagus from the retrocardiac space and taking care not to injure the bilateral pleura. The entire hernia sac which was minimal to non-existent in size, was mobilized out of the mediastinum and reduced into the abdomen. Excess sac was dissected at the level of the gastroesophageal fat pad and set aside. The retroesophageal space was developed. The GE junction was retracted anteriorly and the mediastinal dissection was carried out posterior to the esophagus. Dissection continued until at least 3 cm of intra-abdominal esophagus was obtained without any retraction on the stomach. With the stomach retracted anteriorly, adequate space and visualization was obtained to allow for the crural repair. While doing this, an actively bleeding short gastric vein was identified. There was about a 50 cc blood loss before this was controlled. Strips of bioabsorbable, Phasix mesh were used to reinforce the crural repair. A strip of mesh was placed over each crura and used for reapproximation without tension. Attention was then turned to the gastropexy. Fundus was anchored to the upper left portion of the hiatus with full-thickness crural sutures. The suture was then run along the greater curvature creating a gastropexy to the anterior abdominal wall. Care was taken to stay medial to the phrenic nerve and vascular bundle. About a fourth of the gastric fundus was anchored to the anterior abdominal wall. Attention was then turned to the modified Hill procedure/augmentation stitch. The angle of His was then recreated with a running, 2/0, nonabsorbable, V-Loc suture. This was run between the fundus and the lateral border of the intra-abdominal esophagus. This suture was run up to the level of the left carmelo. Gastropexy was then completed by running the midportion of the gastric fundus towards the initial gastropexy suture and anchoring the 2 together. Salvo and sutures were retrieved. The da Breezy robotic arm was undocked from the patient. The 12 mm port was removed and the fascial defect closed perc utaneously with 0 Vicryl suture. Remaining ports were removed and the abdomen was allowed to deflate. Skin was closed at all sites with 4-0 Monocryl sutures and dressed with Dermabond. Patient was extubated and transferred to the postanesthesia care unit in stable condition. Counts repoted as correct: Yes RAY VILLEDA MD Oct 22, 2024 12:27
--- NOTE | 2024-10-22 12:58 | RADIOLOGY REPORT ---
CHEST RADIOGRAPH Indication: POST OP Technique: DI CHEST,SINGLE VIEW Findings/ Comparison: DI CHEST,SINGLE VIEW on DOS: 03/02/24, CHEST,SINGLE VIEW on DOS: 02/11/21, DI CHEST,SINGLE VIEW on DOS: 03/02/24 FINDINGS: 1. Right lung demonstrates low lung volumes with areas of bronchovascular crowding / atelectasis. Pos tsurgical changes of the mediastinum. Left lung is clear. No pneumothorax. IMPRESSION: 1. Worsening right upper lobe pneumonia
== END 2024-10-22 13:51 | disposition home or self-care (01) ==
LOC: PAS 07:08
PROVIDERS: ATTEND Surgery
DX: K44.9 Diaphragmatic hernia without obstruction or gangrene (principal); I12.9 Hypertensive chronic kidney disease with stage 1 through stage 4 chronic kidney disease, or unspecified chronic kidney disease; N18.30 Chronic kidney disease, stage 3 unspecified; I25.10 Atherosclerotic heart disease of native coronary artery without angina pectoris; I25.2 Old myocardial infarction; Z88.6 Allergy status to analgesic agent; Z79.899 Other long term (current) drug therapy; Z82.49 Family history of ischemic heart disease and other diseases of the circulatory system; Z83.3 Family history of diabetes mellitus
CPT/HCPCS: 36415; 43282; 71045; 80053; 82948; 85025; C1781; J0131; J1100; J2003; J2250; J2405; J2704; J3010; J3490; J7030; J7120; P9045; S2900; Z7506; Z7508; Z7512; A4615; A4618